=== PATIENT | male | born 1965 | race Native Hawaiian/Other Pacific Islander ===

== ENCOUNTER 2018-03-24 15:31 | Inpatient (IN) | payer OTHER ==
--- NOTE | 2018-03-24 16:02 | C.PDOC ---
History Of Present Illness 52 y/o male presents to ED sent by Dr. Izaguirre for evaluation of abnormal EKG and with c/o chest tightness intermittent for 1 month. Patient was sent to Dr. Izaguirre office by PMD for evaluation of heart murmur. Patient states he took Aspirin 81mg today and denies history of Stroke or [place]. Patient denies dark or bloody stool, fever, chills, abdominal pain, back pain, nausea, vomiting, leg swelling or any other complaints at this time. PMD: DR. [facility] Corporate Account Director: Dr. Izaguirre Time Seen by Provider: 03/24/18 15:48 Chief Complaint (Nursing): Chest Pain History Per: Patient History/Exam Limitations: no limitations Onset/Duration Of Symptoms: Days Current Symptoms Are (Timing): Still Present Past Medical History Reviewed: Historical Data, Nursing Documentation, Vital Signs Vital Signs: Last Vital Signs Temp 99.1 F 03/24/18 15:40 Pulse 83 03/24/18 15:40 Resp 19 03/24/18 15:40 BP 136/96 H 03/24/18 15:40 Pulse Ox 99 03/24/18 15:40 - Medical History PMH: No Chronic Diseases Surgical History: No Surg Hx Family History: States: No Known Family Hx - Social History Hx Alcohol Use: No Hx Substance Use: No - Immunization History Hx Tetanus Toxoid Vaccination: No Hx Influenza Vaccination: No Hx Pneumococcal Vaccination: No Review Of Systems Constitutional: Negative for: Fever, Chills Cardiovascular: Positive for: Chest Pain. Negative for: Orthopnea Respiratory: Negative for: Cough, Shortness of Breath Gastrointestinal: Negative for: Nausea, Vomiting, Hematochezia Physical Exam - Physical Exam Appears: Non-toxic, No Acute Distress Skin: Warm, Dry, No Rash Head: Atraumatic, Normacephalic Eye(s): bilateral: Normal Inspection Oral Mucosa: Moist Neck: Supple Cardiovascular: No Edema, Murmur (systolic) Respiratory: Normal Breath Sounds, No Rales, No Rhonchi, No Wheezing Gastrointestinal/Abdominal: Soft, No Tenderness, No Guarding, No Rebound Extremity: Normal ROM, No Pedal Edema, Capillary Refill (<2 seconds) Neurological/Psych: Oriented x3, Normal Speech (Speaking in full sentences), Normal Cognition ED Course And Treatment - Laboratory Results Result Diagrams: 03/24/18 16:00 03/24/18 16:00 O2 Sat by Pulse Oximetry: 99 (RA) Pulse Ox Interpretation: Normal Medical Decision Making Medical Decision Making: Plan:CXR, ECG, Blood work, ordered ECG: NSR @71BPM, ST ELEVATIONS IN V2, V3. T WAVE INVERSION IN LATERAL LEADS, V5, V6 AND LEAD 1 Progress: Discussed ECG with Dr. Izaguirre states no STEMI at this time and to call him back with lab results. 1715 labs unremarkable. no dark or bloody stool per pt. Remained ASA given no mediastinal widening. appreciate consult w/ Dr. Izaguirre: heparin to be started. pt in NAD appreciate consult w/ Dr. Doss: to admit to his service Disposition - Disposition Disposition Time: 17:15 Condition: GOOD Forms: [facility] (Montenegrin) - Clinical Impression Clinical Impression: Unstable angina - Scribe Statement The provider has reviewed the documentation as recorded by the Scribe Soren Jiang All medical record entries made by the Scribe were at my direction and personally dictated by me. I have reviewed the chart and agree that the record accurately reflects my personal performance of the history, physical exam, medical decision making, and the department course for this patient. I have also personally directed, reviewed, and agree with the discharge instructions and disposition.
[2018-03-24 16:16] LABS: BASO % 0.5 % (0.0-2.0); EOS # 0.4 K/uL (0.0-0.7); HEMOGLOBIN 14.4 g/dL (12.0-18.0); LYMPH # 2.3 K/uL (1.0-4.3); LYMPH % 33.9 % (20.0-40.0); MEAN CELL VOLUME 84.1 fL (80.0-94.0); MEAN CORPUSCULAR HEMOGLOBIN 27.9 pg (27.0-31.0); MEAN CORPUSCULAR HGB CONC 33.1 g/dL (33.0-37.0); MONO # 0.5 K/uL (0.0-0.8); MONO % 6.9 % (0.0-10.0); NEUT # 3.5 K/uL (1.8-7.0); NEUT % 52.7 % (50.0-75.0); NRBC % 0.2 % (0.0-2.0); RBC 5.18 Mil/uL (4.40-5.90); RED CELL DISTRIBUTION WIDTH 13.2 % (11.5-14.5); WHITE BLOOD COUNT 6.7 K/uL (4.8-10.8)
[2018-03-24 16:19] LABS: BLOOD UREA NITROGEN 18 mg/dL (9-20); GFR NON-AFRICAN AMERICAN > 60
[2018-03-24 16:20] LABS: ALB/GLOB RATIO 1.4 (1.0-2.1); ALBUMIN 4.8 g/dL (3.5-5.0); ALT/SGPT 38 U/L (21-72); AST/SGOT 56 U/L (17-59)
[2018-03-24 16:27] LABS: B-TYPE NATRIURETIC PEPTIDE 681 pg/mL (0-900)
--- NOTE | 2018-03-24 16:29 | RAD ---
Date of service: 03/24/2018 HISTORY: Chest pain COMPARISON: 08/13/2014. TECHNIQUE: Chest PA and lateral FINDINGS: LINES AND TUBES: None. LUNG AND PLEURA: The lungs are well inflated and clear. No pleural effusion or pneumothorax. HEART AND MEDIASTINUM: The heart is not enlarged. No aortic atherosclerotic calcification present. The hilar and mediastinal contours are within normal limits. SKELETAL STRUCTURES: The bony structures are within normal limits for the patient's age. VISUALIZED UPPER ABDOMEN: Normal. OTHER FINDINGS: None. IMPRESSION: No active pulmonary disease.
[2018-03-24] MEDS ORDERED: Heparin25000 units/250ml 1/2NS 25,000 UNITS/250 ML BAG IV STA (17:05)
[2018-03-24 17:12] VITALS: BMI 22.4
[2018-03-24] MEDS ORDERED: Pneumococcal 23-Valent Vaccine SC ONE (18:59)
[2018-03-24] MEDS ORDERED: Influenza Vaccine 60 MCG/0.5 ML SYR (3 yr & up) IM ONE (19:00)
[2018-03-24] MEDS: Enoxaparin 60 mg Syringe SC SCH (22:46)
[2018-03-25] MEDS: Enoxaparin 60 mg Syringe SC SCH (09:07)
--- NOTE | 2018-03-25 15:39 | CP.PCM.HP ---
History of Present Illness - History of Present Illness History of Present Illness: CC: abnormal EKG HPI: 52 year old male , no past medical illness. Seen in ER for abnormal EKG> feels anxious. Present on Admission - Present on Admission Any Indicators Present on Admission: Yes History of DVT/PE: No History of Uncontrolled Diabetes: No Urinary Catheter: No Decubitus Ulcer Present: No History Surgical Site Infection Following: None Review of Systems - Review of Systems All systems: reviewed and no additional remarkable complaints except (no fever. No chestpain. No SOB) Past Patient History - Tetanus Immunizations Tetanus Immunization: Unknown - Past Medical History & Family History Past Medical History?: No - Past Social History Smoking Status: Never Smoked - MUSCULOSKELETAL/RHEUMATOLOGICAL Hx Falls: No - PSYCHIATRIC Hx Substance Use: No - SURGICAL HISTORY Hx Surgeries: No - ANESTHESIA Hx Anesthesia: No Meds Allergies/Adverse Reactions: Allergies Allergy/AdvReac Type Severity Reaction Status Date / Time No Known Allergies Allergy Verified 03/24/18 15:45 Physical Exam - Constitutional Appears: No Acute Distress - Head Exam Head Exam: NORMAL INSPECTION - Eye Exam Eye Exam: Normal appearance - ENT Exam ENT Exam: Normal Exam - Neck Exam Neck exam: Positive for: Normal Inspection - Respiratory Exam Respiratory Exam: NORMAL BREATHING PATTERN - Cardiovascular Exam Cardiovascular Exam: REGULAR RHYTHM - GI/Abdominal Exam GI & Abdominal Exam: Soft - Rectal Exam Rectal Exam: Deferred - Extremities Exam Extremities exam: Positive for: normal inspection - Neurological Exam Neurological exam: Alert Results - Vital Signs Recent Vital Signs: Last Vital Signs Temp 97.8 F 03/25/18 08:10 Pulse 68 03/25/18 08:10 Resp 18 03/25/18 08:10 BP 131/89 03/25/18 08:10 Pulse Ox 97 03/25/18 08:10 - Labs Result Diagrams: 03/24/18 16:00 03/26/18 07:47 Labs: Laboratory Results - last 24 hr 03/24/18 03/24/18 16:00 16:00 WBC 6.7 RBC 5.18 Hgb 14.4 Hct 43.6 MCV 84.1 MCH 27.9 MCHC 33.1 RDW 13.2 Plt Count 219 MPV 8.0 Neut % (Auto) 52.7 Lymph % (Auto) 33.9 [place] % (Auto) 6.9 Eos % (Auto) 6.0 H Baso % (Auto) 0.5 Neut # (Auto) 3.5 Lymph # (Auto) 2.3 [place] # (Auto) 0.5 Eos # (Auto) 0.4 Baso # (Auto) 0.0 Sodium 138 Potassium 4.8 Chloride 100 Carbon Dioxide 29 Anion Gap 14 BUN 18 Creatinine 0.9 Est GFR ( Amer) > 60 Est GFR (Non-Af Amer) > 60 Random Glucose 98 Calcium 9.0 Magnesium 2.1 Total Bilirubin 0.9 AST 56 ALT 38 Alkaline Phosphatase 53 Troponin I 0.0390 NT-Pro-B Natriuret Pep 681 Total Protein 8.2 Albumin 4.8 Globulin 3.4 Albumin/Globulin Ratio 1.4 Assessment & Plan (1) Unstable angina Status: Acute - Assessment and Plan (Free Text) Assessment: A/P: Continue medications. Cardiology Dr. Izaguirre - Date & Time Date: 03/25/18 Time: 15:40
--- NOTE | 2018-03-25 19:27 | CP.PCM.CON ---
History of Present Illness - History of Present Illness History of Present Illness: 52 y/o male presented to chest tightness intermittent for 1 month. Patient was sent to my office by PMD for evaluation of heart murmur. Patient states he took Aspirin 81mg today and denies history of Stroke or [place]. Patient denies dark or bloody stool, fever, chills, abdominal pain, back pain, nausea, vomiting, leg swelling or any other complaints at this time. PMD: DR. Selam V Chief Complaint (Nursing): Chest Pain History Per: Patient History/Exam Limitations: no limitations Onset/Duration Of Symptoms: Days Current Symptoms Are (Timing): Still Present - Medical History PMH: No Chronic Diseases Surgical History: No Surg Hx Family History: States: No Known Family Hx - Social History Hx Alcohol Use: No Hx Substance Use: No - Immunization History Hx Tetanus Toxoid Vaccination: No Hx Influenza Vaccination: No Hx Pneumococcal Vaccination: No Review Of Systems Constitutional: Negative for: Fever, Chills Cardiovascular: Positive for: Chest Pain. Negative for: Orthopnea Respiratory: Negative for: Cough, Shortness of Breath Gastrointestinal: Negative for: Nausea, Vomiting, Hematochezia Physical Exam - Physical Exam Appears: Non-toxic, No Acute Distress Skin: Warm, Dry, No Rash Head: Atraumatic, Normacephalic Eye(s): bilateral: Normal Inspection Oral Mucosa: Moist Neck: Supple Cardiovascular: No Edema, Murmur (systolic) Respiratory: Normal Breath Sounds, No Rales, No Rhonchi, No Wheezing Gastrointestinal/Abdominal: Soft, No Tenderness, No Guarding, No Rebound Extremity: Normal ROM, No Pedal Edema, Capillary Refill (<2 seconds) Neurological/Psych: Oriented x3, Normal Speech (Speaking in full sentences), Normal Cognition Past Patient History - Tetanus Immunizations Tetanus Immunization: Unknown - Past Medical History & Family History Past Medical History?: No - Past Social History Smoking Status: Never Smoked - MUSCULOSKELETAL/RHEUMATOLOGICAL Hx Falls: No - PSYCHIATRIC Hx Substance Use: No - SURGICAL HISTORY Hx Surgeries: No - ANESTHESIA Hx Anesthesia: No Meds Allergies/Adverse Reactions: Allergies Allergy/AdvReac Type Severity Reaction Status Date / Time No Known Allergies Allergy Verified 03/24/18 15:45 - Medications Medications: Current Medications Enoxaparin Sodium (Lovenox) 60 mg SC Q12 [facility] Last Admin: 03/25/18 09:07 Dose: Not Given Metoprolol Tartrate (Lopressor) 25 mg PO BIDAC [facility] Last Admin: 03/25/18 17:54 Dose: 25 mg Results - Vital Signs Recent Vital Signs: Last Vital Signs Temp 97.7 F 03/25/18 15:00 Pulse 65 03/25/18 16:29 Resp 20 03/25/18 15:00 BP 129/89 03/25/18 17:54 Pulse Ox 100 03/25/18 15:00 - Labs Result Diagrams: 03/24/18 16:00 03/24/18 16:00 Assessment & Plan - Assessment and Plan (Free Text) Assessment: Severe symptomatic Aortic stenosis Likely Bicuspid valve Need to r/o aortic pathology including Aortic aneurysm, Dissection and Coarctation CT angio chest R/O CAD Recommend AVR Cardiac cath Tuesday
[2018-03-26 08:06] LABS: BLOOD UREA NITROGEN 16 mg/dL (9-20); GFR NON-AFRICAN AMERICAN > 60; HDL CHOLESTEROL 38 mg/dL (30-70)
[2018-03-26 08:17] LABS: LDL CHOLESTEROL 144 mg/dL (0-129)
[2018-03-26] MEDS ORDERED: Iodixanol 320 MG/ML 100 ML BOTTLE IV ONE (08:49)
[2018-03-26] MEDS: Enoxaparin 40 mg Syringe SC SCH (09:22)
--- NOTE | 2018-03-26 12:21 | CT ---
PROCEDURE: CT Angiography Chest, Abdomen and Pelvis with and without intravenous contrast HISTORY: R/O Thoracic and Abd Aorta Aneurysm and dissection COMPARISON: None. TECHNIQUE: Contiguous axial images of the chest, abdomen and pelvis were obtained in the phase of aortic enhancement. A noncontrast enhanced CT of the chest was also obtained to evaluate for possible intramural thrombus. Coronal and sagittal reformats were generated. IV dose administered: 100 cc Visipaque 320 Radiation dose: Total exam DLP = 626.78 mGy-cm. This CT exam was performed using one or more of the following dose reduction techniques: Automated exposure control, adjustment of the mA and/or kV according to patient size, and/or use of iterative reconstruction technique. FINDINGS: CT ANGIOGRAPHY OF THE CHEST WITH & WITHOUT CONTRAST: AORTA (CHEST AND ABDOMEN): The ascending thoracic aorta measures approximately 3.75 cm and descending thoracic aorta measures approximately 2.2 cm.. Origins of the and proximal margins of the great vessels are patent. Pulmonary trunk measures approximately 2.5 cm. The thoracic and abdominal aorta are unremarkable, without aneurysm, dissection or rupture. No intramural thrombus identified in the thoracic aorta on the non-contrast ct of the chest. The celiac axis, superior mesenteric artery, inferior mesenteric artery and the renal arteries are also widely patent. The pelvic arteries are patent. Note made of mild partially calcified atherosclerotic plaque changes along the internal iliac arteries.. LUNGS: Minimal passive/dependent type atelectasis both posterior lower lung medrano left greater than right.. No nodule, mass or consolidation. MEDIASTINUM: Heart is enlarged with left ventricular configuration. No significant pericardial effusion. LYMPH NODES: No significant mediastinal or hilar adenopathy. Trachea is midline and patent with no large central endoluminal lesions. There is a small hiatal hernia. PLEURA: Unremarkable. No pneumothorax. No pleural fluid. Few tiny blebs are present both lung apices BONES: Minor multilevel degenerative spondylosis of the thoracic spine. OTHER FINDINGS: None. CT ANGIOGRAPHY OF THE ABDOMEN AND PELVIS WITH CONTRAST: LIVER: Unremarkable. No gross lesion or ductal dilatation. GALLBLADDER AND BILE DUCTS: Unremarkable. PANCREAS: Unremarkable. No gross lesion or ductal dilatation. SPLEEN: Unremarkable. ADRENALS: Unremarkable. No mass. KIDNEYS AND URETERS: Unremarkable. No hydronephrosis. No solid mass. VASCULATURE: Unremarkable. No aortic aneurysm. Minor aortic atherosclerotic calcification or mural plaque present. STOMACH AND BOWEL: Unremarkable. No obstruction. No gross mural thickening. APPENDIX: Normal appendix. PERITONEUM: Unremarkable. No free fluid. No free air. LYMPH NODES: Unremarkable. No enlarged lymph nodes. BLADDER: Incompletely visualized though distended. No obvious intraluminal calculi. REPRODUCTIVE: Not visualized BONES: Visualized osseous structures appear intact. Minor multilevel degenerative spondylosis of the lumbar spine OTHER FINDINGS: None. IMPRESSION: No evidence of aortic dissection. Ascending thoracic aorta measures approximately 3.7 cm. Mild cardiomegaly with LVH. Minor calcified atherosclerotic plaque seen along the abdominal aorta as well as the internal iliac arteries.
--- NOTE | 2018-03-26 15:25 | CP.PCM.PN ---
Subjective - Date & Time of Evaluation Date of Evaluation: 03/26/18 Time of Evaluation: 15:23 - Subjective Subjective: S: Feels dayanara. Objective - Vital Signs/Intake and Output Vital Signs (last 24 hours): Temp Pulse Resp BP Pulse Ox 97.9 F 56 L 18 120/80 97 03/26/18 07:00 03/26/18 07:00 03/26/18 07:00 03/26/18 07:59 03/26/18 07:00 Intake and Output: 03/26/18 03/26/18 06:59 18:59 Intake Total 600 Balance 600 - Medications Medications: Current Medications Aspirin (Ecotrin) 81 mg PO DAILY [facility] Last Admin: 03/26/18 09:21 Dose: 81 mg Enoxaparin Sodium (Lovenox) 40 mg SC DAILY [facility] Last Admin: 03/26/18 09:22 Dose: Not Given Metoprolol Tartrate (Lopressor) 25 mg PO BIDAC [facility] Last Admin: 03/26/18 07:59 Dose: 25 mg - Labs Labs: 03/24/18 16:00 03/26/18 07:47 - Constitutional Appears: No Acute Distress - Head Exam Head Exam: NORMAL INSPECTION - Eye Exam Eye Exam: Normal appearance - ENT Exam ENT Exam: Normal Exam - Neck Exam Neck Exam: Normal Inspection - Respiratory Exam Respiratory Exam: NORMAL BREATHING PATTERN - Cardiovascular Exam Cardiovascular Exam: REGULAR RHYTHM - GI/Abdominal Exam GI & Abdominal Exam: Soft - Rectal Exam Rectal Exam: Deferred - Extremities Exam Extremities Exam: Normal Inspection - Neurological Exam Neurological Exam: Alert Assessment and Plan (1) Unstable angina Status: Acute - Assessment and Plan (Free Text) Assessment: A/P: Continue medications. For Cardiac cath
--- NOTE | 2018-03-26 21:02 | CP.PCM.PN ---
Subjective - Date & Time of Evaluation Date of Evaluation: 03/26/18 Time of Evaluation: 12:05 - Subjective Subjective: Patient seen and evaluated Denies chest pain and dyspnea Review Of Systems Constitutional: Negative for: Fever, Chills Cardiovascular: Positive for: Chest Pain. Negative for: Orthopnea Respiratory: Negative for: Cough, Shortness of Breath Gastrointestinal: Negative for: Nausea, Vomiting, Hematochezia Physical Exam - Physical Exam Appears: Non-toxic, No Acute Distress Skin: Warm, Dry, No Rash Head: Atraumatic, Normacephalic Eye(s): bilateral: Normal Inspection Oral Mucosa: Moist Neck: Supple Cardiovascular: No Edema, Murmur (systolic) Respiratory: Normal Breath Sounds, No Rales, No Rhonchi, No Wheezing Gastrointestinal/Abdominal: Soft, No Tenderness, No Guarding, No Rebound Extremity: Normal ROM, No Pedal Edema, Capillary Refill (<2 seconds) Neurological/Psych: Oriented x3, Normal Speech (Speaking in full sentences), Normal Cognition Objective - Vital Signs/Intake and Output Vital Signs (last 24 hours): Temp Pulse Resp BP Pulse Ox 98.2 F 74 20 115/83 99 03/26/18 15:00 03/26/18 15:39 03/26/18 15:00 03/26/18 17:44 03/26/18 15:00 Intake and Output: 03/26/18 03/27/18 18:59 06:59 Intake Total 600 Balance 600 - Medications Medications: Current Medications Aspirin (Ecotrin) 81 mg PO DAILY [facility] Last Admin: 03/26/18 09:21 Dose: 81 mg Enoxaparin Sodium (Lovenox) 40 mg SC DAILY [facility] Last Admin: 03/26/18 09:22 Dose: Not Given Metoprolol Tartrate (Lopressor) 25 mg PO BIDAC [facility] Last Admin: 03/26/18 17:44 Dose: 25 mg - Labs Labs: 03/24/18 16:00 03/26/18 07:47 Assessment and Plan - Assessment and Plan (Free Text) Assessment: Severe symptomatic CT angio negative for Aortic aneurysm Hyperlipidemia Cardiac cath tomorrow afternoon Recommend AVR as soon as possible
[2018-03-27 08:08] LABS: PROTHROMBIN TIME 11.1 SECONDS (9.7-12.2)
--- NOTE | 2018-03-27 08:10 | CP.PCM.PN ---
Subjective - Date & Time of Evaluation Date of Evaluation: 03/27/18 Time of Evaluation: 07:35 - Subjective Subjective: Pt feels well; gets intermittent CP but he attribute c/o nervous. No cough, no SOB, no edema, no diarrhea, no urinary complain Objective - Vital Signs/Intake and Output Vital Signs (last 24 hours): Temp Pulse Resp BP Pulse Ox 97.7 F 55 L 18 119/83 97 03/27/18 07:00 03/27/18 07:30 03/27/18 07:00 03/27/18 07:00 03/27/18 07:00 - Medications Medications: Current Medications Aspirin (Ecotrin) 81 mg PO DAILY [facility] Last Admin: 03/26/18 09:21 Dose: 81 mg Enoxaparin Sodium (Lovenox) 40 mg SC DAILY [facility] Last Admin: 03/26/18 09:22 Dose: Not Given Metoprolol Tartrate (Lopressor) 25 mg PO BIDAC [facility] Last Admin: 03/26/18 17:44 Dose: 25 mg - Labs Labs: 03/24/18 16:00 03/26/18 07:47 - Constitutional Appears: No Acute Distress - Eye Exam Eye Exam: Normal appearance - ENT Exam ENT Exam: Mucous Membranes Moist - Neck Exam Neck Exam: Full ROM. absent: Normal Inspection, Thyromegaly - Respiratory Exam Respiratory Exam: Clear to Ausculation Bilateral. absent: Rales, Rhonchi, Wheezes - Cardiovascular Exam Cardiovascular Exam: REGULAR RHYTHM, +S1, +S2, Murmur. absent: Gallop, JVD - GI/Abdominal Exam GI & Abdominal Exam: Soft. absent: Tenderness - Extremities Exam Extremities Exam: Full ROM, Normal Capillary Refill. absent: Joint Swelling, Pedal Edema Assessment and Plan - Assessment and Plan (Free Text) Assessment: Aortic Stenosis; CP/Palpitation Discuss plan with pt - want cath Want AV replacement but want to go home c/o business to attend. Cont meds
[2018-03-27] MEDS: Enoxaparin 40 mg Syringe SC SCH (09:11)
[2018-03-27] MEDS ORDERED: Iohexol 350mg/ml 100 ML ONE (19:08)
[2018-03-27] MEDS ORDERED: Lidocaine 2% MPF (5 ml) Inj ONE (19:08)
[2018-03-27] MEDS ORDERED: Midazolam 2 MG/2 ML VIAL ONE (19:08)
--- NOTE | 2018-03-27 21:43 | CP.PCM.CON ---
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 absent: Cough - Gastrointestinal Gastrointestinal: absent: Abdominal Pain, Coffee Ground Emesis, Diarrhea, Heartburn, Nausea, Vomiting - Genitourinary Genitourinary: absent: Difficulty Urinating, Dysuria - Musculoskeletal Musculoskeletal: absent: Muscle Weakness, Stiffness - Integumentary Integumentary: absent: Bleeding Lesions - Neurological Neurological: absent: Focal Weakness, Headaches - Endocrine Endocrine: absent: Polyuria - Hematologic/Lymphatic Hematologic: absent: Easy Bleeding, Easy Bruising Past Patient History - Tetanus Immunizations Tetanus Immunization: Unknown - Past Medical History & Family History Past Medical History?: No - Past Social History Smoking Status: Never Smoked Drugs: Denies - MUSCULOSKELETAL/RHEUMATOLOGICAL Hx Falls: No - PSYCHIATRIC Hx Substance Use: No - SURGICAL HISTORY Hx Surgeries: No - ANESTHESIA Hx Anesthesia: No Meds Allergies/Adverse Reactions: Allergies Allergy/AdvReac Type Severity Reaction Status Date / Time No Known Allergies Allergy Verified 03/24/18 15:45 - Medications Medications: Current Medications Aspirin (Ecotrin) [address] [facility] Last Admin: 03/27/18 09:09 Dose: 81 mg Enoxaparin Sodium (Lovenox) [address] [facility] Metoprolol Tartrate (Lopressor) [address] [facility] Last Admin: 03/27/18 17:41 Dose: 25 mg Physical Exam - Constitutional Appears: Non-toxic, No Acute Distress - Head Exam Head Exam: ATRAUMATIC, NORMAL INSPECTION, NORMOCEPHALIC - Eye Exam Eye Exam: EOMI, PERRL - ENT Exam ENT Exam: Mucous Membranes Moist - Neck Exam Neck exam: Positive for: Normal Inspection - Respiratory Exam Respiratory Exam: Clear to Auscultation Bilateral - Cardiovascular Exam Cardiovascular Exam: REGULAR RHYTHM, Systolic Murmur. absent: JVD - GI/Abdominal Exam GI & Abdominal Exam: Normal Bowel Sounds, Soft. absent: Tenderness - Back Exam Back exam: NORMAL INSPECTION - Neurological Exam Neurological exam: Alert, CN II-XII Intact, Oriented x3 - Psychiatric Exam Psychiatric exam: Normal Affect - Skin Skin Exam: Intact, Normal Color Results - Vital Signs Recent Vital Signs: Last Vital Signs Temp 97.5 F L 03/27/18 15:51 Pulse 64 03/27/18 15:51 Resp 20 03/27/18 15:51 BP 125/75 03/27/18 17:41 Pulse Ox 98 03/27/18 15:51 - Labs Result Diagrams: 03/24/18 16:00 03/26/18 07:47 Labs: Laboratory Results - last 24 hr 03/27/18 07:14 PT 11.1 INR 1.0 - Imaging and Cardiology Chest x-ray Status: Image reviewed by me Assessment & Plan - Assessment and Plan (Free Text) Assessment: CAD and Severe Aortic stenosis Continue lovenox,beta ericka Possible transfer in am for Surgery
[2018-03-27] MEDS ORDERED: Enoxaparin 80 mg Syringe SC SCH (22:00)
[2018-03-28 05:14] LABS: HEMOGLOBIN 14.6 g/dL (12.0-18.0); MEAN CELL VOLUME 83.4 fL (80.0-94.0); MEAN CORPUSCULAR HGB CONC 33.5 g/dL (33.0-37.0); MEAN PLATELET VOLUME 8.3 fL (7.2-11.7); RBC 5.21 Mil/uL (4.40-5.90); RED CELL DISTRIBUTION WIDTH 13.7 % (11.5-14.5); WHITE BLOOD COUNT 7.1 K/uL (4.8-10.8)
--- NOTE | 2018-03-28 05:29 | CP.PCM.PN ---
Subjective - Date & Time of Evaluation Date of Evaluation: 03/27/18 Time of Evaluation: 22:20 - Subjective Subjective: Patient s/p cardiac Cath 1. Severe Left Main and Triple vessel disease 2. Severe by ECHO Recommend urgent CABG and SAVR d/w patient and his partner They would like to go home first and think about it Advised against the discharge Explained the risk of sudden cardiac with even mild exertion Transfer to ICU Full anticoagulation Oxygen, ASA, Statins and B blockers Bed rest As per patient wishes for second opinion another slide maker consulted Will follow Contacted Dr. Ny (CT surgeon) at [place] for immediate transfer Objective - Vital Signs/Intake and Output Vital Signs (last 24 hours): Temp Pulse Resp BP Pulse Ox 97.8 F 56 L 15 105/77 99 03/28/18 00:00 03/28/18 03:22 03/28/18 03:22 03/28/18 03:22 03/28/18 03:22 Intake and Output: 03/27/18 03/28/18 18:59 06:59 Intake Total 120 Output Total 150 Balance -30 - Medications Medications: Current Medications Aspirin (Ecotrin) 81 mg PO DAILY [facility] Last Admin: 03/27/18 09:09 Dose: 81 mg Enoxaparin Sodium (Lovenox) 60 mg SC Q12 [facility] Metoprolol Tartrate (Lopressor) 25 mg PO BIDAC [facility] Last Admin: 03/27/18 17:41 Dose: 25 mg Pantoprazole Sodium (Protonix Ec Tab) 40 mg PO DAILY [facility] Rosuvastatin Calcium (Crestor) 20 mg PO HS [facility] - Labs Labs: 03/28/18 05:03 03/26/18 07:47 PT 11.1 SECONDS (9.7-12.2) 03/27/18 07:14 INR 1.0 03/27/18 07:14
[2018-03-28 05:36] LABS: ALB/GLOB RATIO 1.5 (1.0-2.1); ALBUMIN 4.5 g/dL (3.5-5.0); ALT/SGPT 32 U/L (21-72); AST/SGOT 28 U/L (17-59); BLOOD UREA NITROGEN 16 mg/dL (9-20); CALCIUM 9.1 mg/dl (8.6-10.4); GFR NON-AFRICAN AMERICAN > 60
--- NOTE | 2018-03-28 07:00 | CARDCATH ---
PROCEDURE DATE: 03/27/2018 PROCEDURES: 1. Left heart catheterization. 2. Coronary angiogram. 3. Aortic root angiogram. CLINICAL INDICATIONS: 1. Dyspnea and chest pain with minimal exertion. 2. Severe aortic stenosis. 3. Hypertension. REFERRING PHYSICIAN: Wesly Doss MD PERFORMING PHYSICIAN: Nish Izaguirre MD BRIEF CLINICAL HISTORY: Андрей Argueta is a 52-year-old Maltese gentleman presented to my office with the complaints of chest heaviness and dyspnea with minimal exertion. The patient was subsequently transferred to [facility] for unstable angina. The 2D echo has revealed severe aortic stenosis and normal LV function. The patient is scheduled for cardiac cath today for further management. DESCRIPTION OF PROCEDURE: After informed consent, the patient was prepped and draped in the usual sterile fashion. A 2% lidocaine was given in the right wrist for local anesthesia. A JR4 6-[place]rainian diagnostic catheter was engaged with right coronary artery. Contrast injected, and right coronary angiogram was done. Then, the catheter was exchanged to 6-[place] catheter. The catheter was engaged into the left main coronary artery. Contrast injected, and left coronary angiogram was done. Then, the catheter was exchanged to 6-Ukrainian pigtail catheter. Using the power injector, aortic root angiogram was done. The patient tolerated the procedure well. Postprocedure Terumo radial band applied to right wrist with excellent hemostasis. Radiological supervision and radiological interpretation of the coronary imaging was done. FINDINGS: 1. Distal left main coronary artery has a critical 95% stenosis. The patient has a trifurcation disease with ostial LAD, ostial ramus, and ostial circumflex disease. 2. Ostial LAD has a 90% stensois. Mid LAD has a 95-98% stenosis. Distal LAD and diagonal branches are patent. 3. Ramus has a 90% ostial stenosis. Mid ramus has a 70% concentric stenosis. 4. Left circumflex has a 90% ostial stenosis. Distal circumflex has a 95% eccentric stenosis. 5. Right coronary artery is dominant. Mid right coronary artery has a 95% critical stenosis. 6. Aortic root angiogram has revealed mild aortic regurgitation. No aneurysm noted. 7. LV ejection fraction by echo is normal. The patient has [id number] aortic stenosis by echo. Peak gradient was more than 60 mmHg and mean gradients of 45 mmHg by echo. IMPRESSION: 1. Critical left main and triple-vessel disease. 2. Cbkcjq-[id number]-egshnnpz aortic stenosis. RECOMMENDATIONS: Recommend urgent coronary artery bypass surgery and aortic valve replacement. Nish Izaguirre MD
--- NOTE | 2018-03-28 09:01 | CP.PCM.PN ---
Subjective - Date & Time of Evaluation Date of Evaluation: 03/28/18 Time of Evaluation: 08:50 - Subjective Subjective: Pt feels well; no CP but admits has CP at work and will rest. Then goes back to work. No cough, no SOB, no diarrhea, no edema Objective - Vital Signs/Intake and Output Vital Signs (last 24 hours): Temp Pulse Resp BP Pulse Ox 98.1 F 61 14 115/88 100 03/28/18 08:00 03/28/18 08:06 03/28/18 08:06 03/28/18 08:06 03/28/18 08:06 Intake and Output: 03/28/18 03/28/18 06:59 18:59 Intake Total 120 Output Total 400 Balance -280 - Medications Medications: Current Medications Aspirin (Ecotrin) 81 mg PO DAILY [facility] Last Admin: 03/27/18 09:09 Dose: 81 mg Enoxaparin Sodium (Lovenox) 60 mg SC Q12 [facility] Metoprolol Tartrate (Lopressor) 25 mg PO BIDAC [facility] Last Admin: 03/28/18 07:40 Dose: Not Given Pantoprazole Sodium (Protonix Ec Tab) 40 mg PO DAILY [facility] Rosuvastatin Calcium (Crestor) 20 mg PO HS [facility] - Labs Labs: 03/28/18 05:03 03/28/18 05:03 PT 11.1 SECONDS (9.7-12.2) 03/27/18 07:14 INR 1.0 03/27/18 07:14 - Constitutional Appears: No Acute Distress - Eye Exam Eye Exam: Normal appearance - ENT Exam ENT Exam: Mucous Membranes Moist - Neck Exam Neck Exam: Full ROM. absent: Thyromegaly - Respiratory Exam Respiratory Exam: Clear to Ausculation Bilateral. absent: Rales, Rhonchi, Wheezes - Cardiovascular Exam Cardiovascular Exam: REGULAR RHYTHM, +S1, +S2, Murmur. absent: Gallop, JVD - GI/Abdominal Exam GI & Abdominal Exam: Soft, Normal Bowel Sounds. absent: Tenderness - Extremities Exam Extremities Exam: Full ROM, Normal Capillary Refill. absent: Calf Tenderness, Joint Swelling, Pedal Edema Assessment and Plan - Assessment and Plan (Free Text) Plan: Chest pain w/ CAD; Severe Aortic Stenosis Discuss w/ patient ; Waiting for to arrive from [facility]
[2018-03-28] MEDS: Enoxaparin 60 mg Syringe SC SCH ×2 (10:56→21:23)
[2018-03-28] MEDS: Pantoprazole 40 mg EC Tab PO SCH (10:56)
--- NOTE | 2018-03-28 11:26 | CP.PCM.CON ---
History of Present Illness - History of Present Illness History of Present Illness: patient with Severe aortic stenosis and CAD (95%L main,85%L circumflex,95% RCA) transferred to ICU following Cardiac Cath 52 y/o male with no significant PMH referred to [facility] for heart murmur.H/o exertional dyspnea(ET 1-2 blocks) and intermittent chest pain x 1 month No chest pain,palpitations at present time. Sitting comfortably in bed and family bed side. Past Patient History - Tetanus Immunizations Tetanus Immunization: Unknown - Past Medical History & Family History Past Medical History?: No - Past Social History Smoking Status: Never Smoked Drugs: Denies - MUSCULOSKELETAL/RHEUMATOLOGICAL Hx Falls: No - PSYCHIATRIC Hx Substance Use: No - SURGICAL HISTORY Hx Surgeries: No - ANESTHESIA Hx Anesthesia: No Meds Allergies/Adverse Reactions: Allergies Allergy/AdvReac Type Severity Reaction Status Date / Time No Known Allergies Allergy Verified 03/24/18 15:45 - Medications Medications: Current Medications Aspirin (Ecotrin) 81 mg PO DAILY [facility] Last Admin: 03/28/18 10:56 Dose: 81 mg Enoxaparin Sodium (Lovenox) 60 mg SC Q12 [facility] Last Admin: 03/28/18 10:56 Dose: 60 mg Metoprolol Tartrate (Lopressor) 25 mg PO BIDAC [facility] Last Admin: 03/28/18 07:40 Dose: Not Given Pantoprazole Sodium (Protonix Ec Tab) 40 mg PO DAILY [facility] Last Admin: 03/28/18 10:56 Dose: 40 mg Rosuvastatin Calcium (Crestor) 20 mg PO HS [facility] Physical Exam - Head Exam Head Exam: NORMOCEPHALIC - Neck Exam Neck exam: Positive for: Normal Inspection - Respiratory Exam Respiratory Exam: NORMAL BREATHING PATTERN - Cardiovascular Exam Cardiovascular Exam: REGULAR RHYTHM, Systolic Murmur - Extremities Exam Extremities exam: Positive for: normal inspection - Neurological Exam Neurological exam: Alert, Oriented x3 Results - Vital Signs Recent Vital Signs: Last Vital Signs Temp 98.1 F 03/28/18 08:00 Pulse 74 03/28/18 11:06 Resp 15 03/28/18 11:06 BP 137/105 H 03/28/18 11:06 Pulse Ox 100 03/28/18 11:06 - Labs Result Diagrams: 03/28/18 05:03 03/28/18 05:03 Labs: Laboratory Results - last 24 hr 03/28/18 03/28/18 05:03 05:03 WBC 7.1 RBC 5.21 Hgb 14.6 Hct 43.5 MCV 83.4 MCH 28.0 MCHC 33.5 RDW 13.7 Plt Count 220 MPV 8.3 Sodium 138 Potassium 3.9 Chloride 101 Carbon Dioxide 28 Anion Gap 13 BUN 16 Creatinine 0.8 Est GFR ( Amer) > 60 Est GFR (Non-Af Amer) > 60 Random Glucose 92 Calcium 9.1 Phosphorus 3.9 Magnesium 2.2 Total Bilirubin 0.9 AST 28 ALT 32 Alkaline Phosphatase 62 Total Protein 7.6 Albumin 4.5 Globulin 3.1 Albumin/Globulin Ratio 1.5 Assessment & Plan (1) Unstable angina Assessment and Plan: We were called for second opinion regarding CABG with AVR vs PCI vs medical management. We reviewed films and examined patient. Discussed with patient and family. In our opinion best option is CABG with AVR. Patient and family has agreed now. May proceed with transfer and surgery. Status: Acute
[2018-03-28 22:02] VITALS: RESP 20
[2018-03-28] MEDS ORDERED: Enoxaparin 80 mg Syringe SC SCH (23:30)
[2018-03-29 07:53] VITALS: BP 140/93; TEMP 97.9; O2SAT 99
--- NOTE | 2018-03-29 08:31 | CP.PCM.PN ---
Subjective - Date & Time of Evaluation Date of Evaluation: 03/29/18 Time of Evaluation: 08:10 - Subjective Subjective: Pt awaiting transfer; No CP at rest, no cough, no n/v, no cough Objective - Vital Signs/Intake and Output Vital Signs (last 24 hours): Temp Pulse Resp BP Pulse Ox 97.9 F 85 20 140/93 H 99 03/29/18 07:00 03/29/18 07:33 03/29/18 07:00 03/29/18 07:54 03/29/18 07:00 Intake and Output: 03/29/18 03/29/18 06:59 18:59 Output Total 300 Balance -300 - Medications Medications: Current Medications Aspirin (Ecotrin) 81 mg PO DAILY [facility] Last Admin: 03/28/18 10:56 Dose: 81 mg Enoxaparin Sodium (Lovenox) 60 mg SC Q12 [facility] Last Admin: 03/28/18 21:23 Dose: 60 mg Metoprolol Tartrate (Lopressor) 25 mg PO BIDAC [facility] Last Admin: 03/29/18 07:54 Dose: 25 mg Pantoprazole Sodium (Protonix Ec Tab) 40 mg PO DAILY [facility] Last Admin: 03/28/18 10:56 Dose: 40 mg Rosuvastatin Calcium (Crestor) 20 mg PO HS [facility] Last Admin: 03/28/18 21:23 Dose: 20 mg - Labs Labs: 03/28/18 05:03 03/28/18 05:03 PT 11.1 SECONDS (9.7-12.2) 03/27/18 07:14 INR 1.0 03/27/18 07:14 - Constitutional Appears: No Acute Distress - Eye Exam Eye Exam: Normal appearance - ENT Exam ENT Exam: Mucous Membranes Moist - Neck Exam Neck Exam: Full ROM. absent: Lymphadenopathy, Normal Inspection - Cardiovascular Exam Cardiovascular Exam: REGULAR RHYTHM, +S1, +S2, Murmur. absent: Gallop, JVD - GI/Abdominal Exam GI & Abdominal Exam: Soft. absent: Tenderness, Normal Bowel Sounds - Extremities Exam Extremities Exam: Full ROM, Normal Capillary Refill. absent: Calf Tenderness, Joint Swelling, Pedal Edema Assessment and Plan - Assessment and Plan (Free Text) Assessment: Severe Aortic stenosis; CAD (Triple vssl w/ L main coronary) For surgery Cont meds
[2018-03-29] MEDS: Pantoprazole 40 mg EC Tab PO SCH (09:36)
[2018-03-29] MEDS: Enoxaparin 60 mg Syringe SC SCH (09:38)
[2018-03-29 13:29] VITALS: PULSE 76
[2018-03-29] MEDS ORDERED: Influenza Virus Vaccine 45 mcg/0.5 ml Syr (36 months - 7 yrs) IM ONE (13:59)
[2018-03-29] MEDS ORDERED: Pneumococcal 23-Valent Vaccine IM ONE (13:59)
--- NOTE | 2018-03-29 18:03 | CARD ---
APPROVED REPORT Date of service: 03/25/2018 EXAM: Two-dimensional and M-mode echocardiogram with Doppler and color Doppler. INDICATION Chest Pain 2D DIMENSIONS IVSd1.7 (0.7-1.1cm)Aortic Root (2D)2.2 (2.0-3.7cm) LVDd4.4 (3.9-5.9cm)LVOT Diameter2.1 (1.8-2.4cm) PWd1.7 (0.7-1.1cm)LA Icmrzm31 (18-58mL) LVDs2.8 (2.5-4.0cm)FS (%) 36.9 % LVEF (%)67.1 (>50%)IVC0.00 cm M-Mode DIMENSIONS Left Atrium (MM)3.81 (2.5-4.0cm)IVSd1.42 (0.7-1.1cm) Aortic Root2.34 (2.2-3.7cm)LVDd5.07 (4.0-5.6cm) Aortic Cusp Exc.1.40 (1.5-2.0cm)PWd1.11 (0.7-1.1cm) FS (%) 45 %LVDs2.78 (2.0-3.8cm) LVEF (%)60 (>50%) Aortic Valve AoV Peak Bzqndgbf894.3cm/sAoV KSM017.0cmAO Peak GR.69mmHg AO Mean GR.44mmHg Mitral Valve MV E Xusfgjnt90.1cm/sMV A Bphmlysd99.8cm/sE/A ratio1.1 TDI Lateral E' Peak V6.16cm/sMedial E' Peak V3.71cm/sE/Lateral E'13.7 E/Medial E'22.7 Tricuspid Valve TR Peak Ieyeekdw357mr/sTR Peak Gr.24raWfTCGK48bxZj LEFT VENTRICLE The left ventricle is normal size. There is mild to moderate concentric left ventricular hypertrophy. The left ventricular function is normal. The left ventricular ejection fraction is within the normal range. There is normal LV segmental wall motion. The left ventricular diastolic function is normal. RIGHT VENTRICLE The right ventricle is normal size. ATRIA The left atrium size is normal. The right atrium size is normal. AORTIC VALVE There is trace aortic regurgitation. There is severe valvular aortic stenosis. MITRAL VALVE Mitral regurgitation is trace to mild. TRICUSPID VALVE There is mild tricuspid regurgitation. <Conclusion> Normal LV systolic function. Normal chamber size. Severe Aortic stenosis. Trace to mild MR. Mild TR.
--- NOTE | 2018-03-30 17:35 | CARD ---
APPROVED REPORT Date of service: 03/24/2018 EKG Measurement Heart [id number] <Conclusion> Normal sinus rhythm Possible Left atrial enlargement Left ventricular hypertrophy Anteroseptal infarct, age undetermined ST & T wave abnormality, consider lateral ischemia Abnormal ECG
--- NOTE | 2018-04-01 21:56 | CP.PCM.PN ---
Subjective - Date & Time of Evaluation Date of Evaluation: 03/28/18 Time of Evaluation: 08:15 - Subjective Subjective: Patient seen and evaluated Denies chest pain and dyspnea Review Of Systems Constitutional: Negative for: Fever, Chills Cardiovascular: Positive for: Chest Pain. Negative for: Orthopnea Respiratory: Negative for: Cough, Shortness of Breath Gastrointestinal: Negative for: Nausea, Vomiting, Hematochezia Physical Exam - Physical Exam Appears: Non-toxic, No Acute Distress Skin: Warm, Dry, No Rash Head: Atraumatic, Normacephalic Eye(s): bilateral: Normal Inspection Oral Mucosa: Moist Neck: Supple Cardiovascular: No Edema, Murmur (systolic) Respiratory: Normal Breath Sounds, No Rales, No Rhonchi, No Wheezing Gastrointestinal/Abdominal: Soft, No Tenderness, No Guarding, No Rebound Extremity: Normal ROM, No Pedal Edema, Capillary Refill (<2 seconds) Neurological/Psych: Oriented x3, Normal Speech (Speaking in full sentences), Normal Cognition Assessment and Plan - Assessment and Plan (Free Text) Assessment: Severe symptomatic CT angio negative for Aortic aneurysm Hyperlipidemia Patient s/p cardiac Cath 1. Severe Left Main and Triple vessel disease 2. Severe by ECHO Recommend urgent CABG and SAVR For transfer to [place] Objective - Vital Signs/Intake and Output Vital Signs (last 24 hours): Temp Pulse Resp BP Pulse Ox 97.9 F 76 20 140/93 H 99 03/29/18 07:00 03/29/18 12:00 03/29/18 07:00 03/29/18 07:54 03/29/18 07:00 - Labs Labs: 03/28/18 05:03 03/28/18 05:03 PT 11.1 SECONDS (9.7-12.2) 03/27/18 07:14 INR 1.0 03/27/18 07:14
--- NOTE | 2018-04-10 08:36 | CP.PCM.DIS ---
Provider - Provider Date of Admission: 03/24/18 17:27 CC: chest pain 52 y/o male with no significant PMH> Patient seen in OPD c/o physical. Pt noted with loud murmur & EKG done was abnormal. Pt advise to see Cardio. He was seen in Cardiology and admitted he has been having chest pain. Pt sent to ER and was admitted. Attending physician: Wesly Doss MD Time Spent in preparation of Discharge (in minutes): 11 Hospital Course - Lab Results Lab Results: Micro Results 03/29/18 02:17 Nose MRSA Culture - Final MRSA NOT DETECTED 03/27/18 21:26 Naris MRSA Culture (Admit) - Final MRSA NOT DETECTED Most Recent Lab Values WBC 7.1 K/uL (4.8-10.8) 03/28/18 05:03 RBC 5.21 Mil/uL (4.40-5.90) 03/28/18 05:03 Hgb 14.6 g/dL (12.0-18.0) 03/28/18 05:03 Hct 43.5 % (35.0-51.0) 03/28/18 05:03 MCV 83.4 fL (80.0-94.0) 03/28/18 05:03 MCH 28.0 pg (27.0-31.0) 03/28/18 05:03 MCHC 33.5 g/dL (33.0-37.0) 03/28/18 05:03 RDW 13.7 % (11.5-14.5) 03/28/18 05:03 Plt Count 220 K/uL (130-400) 03/28/18 05:03 MPV 8.3 fL (7.2-11.7) 03/28/18 05:03 Neut % (Auto) 52.7 % (50.0-75.0) 03/24/18 16:00 Lymph % (Auto) 33.9 % (20.0-40.0) 03/24/18 16:00 [place] % (Auto) 6.9 % (0.0-10.0) 03/24/18 16:00 Eos % (Auto) 6.0 % (0.0-4.0) H 03/24/18 16:00 Baso % (Auto) 0.5 % (0.0-2.0) 03/24/18 16:00 Neut # (Auto) 3.5 K/uL (1.8-7.0) 03/24/18 16:00 Lymph # (Auto) 2.3 K/uL (1.0-4.3) 03/24/18 16:00 [place] # (Auto) 0.5 K/uL (0.0-0.8) 03/24/18 16:00 Eos # (Auto) 0.4 K/uL (0.0-0.7) 03/24/18 16:00 Baso # (Auto) 0.0 K/uL (0.0-0.2) 03/24/18 16:00 PT 11.1 SECONDS (9.7-12.2) 03/27/18 07:14 INR 1.0 03/27/18 07:14 Sodium 138 mmol/L (132-148) 03/28/18 05:03 Potassium 3.9 mmol/L (3.6-5.2) 03/28/18 05:03 Chloride 101 mmol/L (98-107) 03/28/18 05:03 Carbon Dioxide 28 mmol/L (22-30) 03/28/18 05:03 Anion Gap 13 (10-20) 03/28/18 05:03 BUN 16 mg/dL (9-20) 03/28/18 05:03 Creatinine 0.8 mg/dL (0.8-1.5) 03/28/18 05:03 Est GFR ( Amer) > 60 03/28/18 05:03 Est GFR (Non-Af Amer) > 60 03/28/18 05:03 Random Glucose 92 mg/dL (75-110) 03/28/18 05:03 Calcium 9.1 mg/dl (8.6-10.4) 03/28/18 05:03 Phosphorus 3.9 mg/dL (2.5-4.5) 03/28/18 05:03 Magnesium 2.2 mg/dL (1.6-2.3) 03/28/18 05:03 Total Bilirubin 0.9 mg/dL (0.2-1.3) 03/28/18 05:03 AST 28 U/L (17-59) 03/28/18 05:03 ALT 32 U/L (21-72) 03/28/18 05:03 Alkaline Phosphatase 62 U/L (38-126) 03/28/18 05:03 Troponin I 0.0340 ng/mL (0.00-0.120) 03/26/18 07:47 NT-Pro-B Natriuret Pep 681 pg/mL (0-900) 03/24/18 16:00 Total Protein 7.6 g/dL (6.3-8.3) 03/28/18 05:03 Albumin 4.5 g/dL (3.5-5.0) 03/28/18 05:03 Globulin 3.1 gm/dL (2.2-3.9) 03/28/18 05:03 Albumin/Globulin Ratio 1.5 (1.0-2.1) 03/28/18 05:03 Triglycerides 107 mg/dL (0-149) D 03/26/18 07:47 Cholesterol 199 mg/dL (0-199) 03/26/18 07:47 LDL Cholesterol Direct 144 mg/dL (0-129) H 03/26/18 07:47 HDL Cholesterol 38 mg/dL (30-70) 03/26/18 07:47 - Hospital Course Hospital Course: Pt was admitted and work up showed severe aortic stenosis. Pt had cardiac cath and showed 95 % stenosis of left main coronary & 2 other vessels. Pt transferred to T[facility]iary hosp. Discharge Exam - Head Exam Head Exam: NORMOCEPHALIC - Eye Exam Eye Exam: Normal appearance - ENT Exam ENT Exam: Mucous Membranes Moist - Neck Exam Neck exam: Full Rom - Respiratory Exam Respiratory Exam: Clear to PA & Lateral. absent: Rales, Rhonchi, Wheezes - Cardiovascular Exam Cardiovascular Exam: REGULAR RHYTHM, +S1, +S2, Systolic Murmur. absent: Gallop, JVD - GI/Abdominal Exam GI & Abdominal Exam: Soft. absent: Rebound, Tenderness - Extremities Exam Extremities exam: full ROM, normal capillary refill, pedal pulses present - Neurological Exam Neurological exam: Alert, CN II-XII Intact, Normal Gait, Oriented x3 Discharge Plan - Follow Up Plan Condition: GOOD Disposition: Trans to Other Acute Care Hosp Instructions: Metoprolol
== END 2018-03-29 14:04 | disposition short-term general hospital (02) | DRG 287 ==
LOC: C.ER 15:31 → C.6T 17:27 → C.9I 03-27 20:01 → C.5S 03-28 20:37
PROVIDERS: ADMIT Internal Medicine; ATTEND Internal Medicine
PROC: 4A023N7 Measurement of Cardiac Sampling and Pressure, Left Heart, Percutaneous Approach (ICD-10-PCS; principal; 2018-03-27)
PROC: B3101ZZ Fluoroscopy of Thoracic Aorta using Low Osmolar Contrast (ICD-10-PCS; 2018-03-27)
PROC: B2111ZZ Fluoroscopy of Multiple Coronary Arteries using Low Osmolar Contrast (ICD-10-PCS; 2018-03-27)
DX: I25.110 Atherosclerotic heart disease of native coronary artery with unstable angina pectoris (principal); I35.2 Nonrheumatic aortic (valve) stenosis with insufficiency; E78.5 Hyperlipidemia, unspecified; I10 Essential (primary) hypertension